=== PATIENT | female | born 1950 | race Caucasian/White ===

== ENCOUNTER 2024-03-20 11:37 | Observation (INO) ==
[2024-03-20 12:13] LABS: Basophils # (auto) 0.03 K/uL (0.00-0.20); Basophils % (auto) 0.4 %; Eosinophils # (auto) 0.17 K/uL (0.00-0.50); Eosinophils % (auto) 2.3 %; Hematocrit (blood only) 34.3 % (37.0-47.0); Hemoglobin 11.5 g/dl (12.0-16.0); Immature Granulocytes # (auto) 0.01 K/uL (0.01-0.20); Immature Granulocytes % (auto) 0.1 %; Lymphocytes # (auto) 1.42 K/uL (1.20-3.40); Mean Corpuscular Hgb Conc 33.5 g/dL (32.0-36.0); Mean Corpuscular Volume 92.5 fL (80.0-100.0); Mean Platelet Volume 10.6 fL (9.4-12.4); Monocytes # (auto) 0.51 K/uL (0.11-0.59); Monocytes % (auto) 6.8 %; Neutrophils # (auto) 5.32 K/uL (1.40-6.50); Neutrophils % (auto) 71.4 %; Platelet Count 151 K/uL (130-400); RDW Coefficient of Variation 13.5 % (11.5-14.5); RDW Standard Deviation 45.8 fL (36.4-46.3); Red Blood Count 3.71 M/uL (4.20-5.40); White Blood Count 7.46 K/ul (4.8-10.8)
--- NOTE | 2024-03-20 12:19 | Emergency Department Note ---
Impression & Plan Syncope ADMIT ED Provider Note HPI: History obtained from patient and at the bedside. The patient is a 73-year-old female with history of hyperlipidemia, presents the emergency department with a chief complaint of a syncopal event today. Patient's is at the bedside and he states that they were shopping earlier today at [facility] when the patient complained briefly of lightheadedness and then was assisted to the ground by her . He states that she did not hit her head, he states that she did complain of lightheadedness when she regained consciousness several seconds later. Patient did not have any seizure-like activity that was noted. Patient has not had similar symptoms in the past. On my initial assessment of the patient here in the ED she states she feels "fine". She denies any chest pain or shortness of breath, she does not have any focal motor deficits on arrival. Patient is mildly tachycardic on my initial assessment at 113 but she otherwise appears well. ROS: - Per HPI Differential Diagnosis: Vasovagal syncope, arrhythmia to include SVT, atrial fibrillation with RVR, ventricular tachycardia, acute coronary syndrome, pulmonary embolism, amongst other potential pathologies. *Outpatient medications and allergy history reviewed. PE: General: Alert HEENT: Normocephalic, trachea midline Eyes: Extraocular eye movement is intact, no scleral erythema Pulmonary: Clear to auscultation bilaterally, no wheezing Cardio: Regular rate and rhythm GI: Abdomen is soft to palpation : No suprapubic tenderness MSK: No evidence of trauma or malformation of the extremities, no edema Skin: No evidence of rash Neuro: Alert, no focal deficits Psychiatric: Cooperative INDEPENDENT INTERPRETATIONS: ekg monitor tech: (As interpreted by myself): - An order was placed for continuous cardiac monitoring - Patient was noted to be in Sinus rhythm with a rate of 92 EKG: (As interpreted by myself): Rate: 101 Rhythm: Sinus tachycardia Intervals: Within normal limits ST changes: No ST elevation Time: 1149 Chest x-ray: (As interpreted by myself): Nonspecific bilateral lower airspace opacities Interventions provided in ED: -IV fluid bolus Medical Decision Making: IV was established and lab work obtained, patient was placed on nuclear monitoring technician.Lab work shows no leukocytosis, hemoglobin is stable at 11.5, platelet count is normal, D-dimer was obtained that is elevated at 1180, CMP does not show any evidence of any critical findings aside from a mildly elevated troponin At 28.1. EKG per my interpretation shows sinus tachycardia without any evidence of any acute ischemic changes. Patient denies any current chest pain, low suspicion for ACS. CT angiography of the chest was obtained given the patient's elevated D-dimer, this does not show any evidence of pulmonary embolism, there is concern for calcified aortic valve and possible aortic stenosis, also mention of nonspecific patchy lower lung space opacities that could be consistent with alveolar edema versus infectious or inflammatory process. Patient denies any recent upper respiratory illness symptoms during my exam, low suspicion for acute pneumonia. Patient states that her symptoms were quite acute in onset today when she was out shopping. Repeat troponin was obtained and is uptrending to 52.6, given CT imaging findings in addition to the patient's syncopal episode today and elevated troponin, she will need to be admitted to the hospital. Patient was in agreement to this plan as well as her at the bedside. I discussed the above findings with the on-call hospitalist service for [facility] and the patient was placed to the admission of Dr. Mauricio for further care. Consultants/Discussions held with other healthcare providers: -Hospitalist, Dr. Horvath Disposition discussion held by myself with: -Patient and at bedside Diagnosis: 1. Syncope, acute 2. Elevated high-sensitivity troponin level, acute 3. Calcified aortic valve on CT imaging of the chest, acute Disposition: Admission Simon Goodman DO Emergency Medicine Past Med/Surg History Problem List (Updated 03/20/24 @ 18:02 by Simon Goodman DO) Aortic stenosis Syncope (Acute) Medical History (Updated 03/20/24 @ 18:02 by Simon Goodman DO) COVID-19 Hyperlipidemia Surgical History (Updated 03/20/24 @ 16:42 by Farnaz Delgado PA-C) History of cholecystectomy History of lumpectomy of left breast History of carpal tunnel surgery Family History (Updated 03/20/24 @ 16:42 by Farnaz Delgado PA-C) Other Diabetes Heart disease Osteoporosis Social History Smoking Status: Never smoker Feels Safe at Home: Yes Allergies Allergies Allergy/AdvReac Type Severity Reaction Status Date / Time Penicillins AdvReac Intermediate DIZZY AND Verified 02/26/21 18:56 LIGHTHEADED aspirin AdvReac Mild NAUSEA Verified 02/26/21 18:56 Home Meds Home Medications Medication Instructions Recorded Confirmed atorvastatin 20 mg tablet 20 mg PO DAILY 02/26/21 03/20/24 meloxicam 15 mg tablet 15 mg PO DAILY 02/26/21 03/20/24 Results & Data (ED) Vital Signs Vital Signs - 24 hr 03/20/24 11:45 03/20/24 11:50 03/20/24 11:59 Temperature 36.5 C Temperature Source Oral Pulse Rate 114 H Pulse Rate [Apical] Respiratory Rate 20 Respiratory Effort / Characteristics Non-Labored Spontaneous Respiratory Depth Normal Respiratory Pattern Regular Blood Pressure 110/76 Blood Pressure [Left Arm] Blood Pressure Mean 87 Blood Pressure Mean [Left Arm] Pulse Oximetry 95 Oxygen Delivery Method Room Air Room Air Room Air Sepsis Recent Fever Within 48 Hours No Sepsis New/Unexplained Change in Mental Status N/A Sepsis Action Taken by Nursing No Action Required 03/20/24 11:59 03/20/24 12:12 03/20/24 13:00 Temperature Temperature Source Pulse Rate 96 H Pulse Rate [Apical] 91 H Respiratory Rate 16 Respiratory Effort / Characteristics Respiratory Depth Respiratory Pattern Blood Pressure Blood Pressure [Left Arm] 123/78 Blood Pressure Mean Blood Pressure Mean [Left Arm] 93 Pulse Oximetry 99 Oxygen Delivery Method Room Air Room Air Sepsis Recent Fever Within 48 Hours Sepsis New/Unexplained Change in Mental Status Sepsis Action Taken by Nursing 03/20/24 15:05 03/20/24 16:37 03/20/24 17:27 Temperature Temperature Source Pulse Rate 86 Pulse Rate [Apical] 114 H 96 H Respiratory Rate 16 18 Respiratory Effort / Characteristics Non-Labored Spontaneous Non-Labored Spontaneous Respiratory Depth Normal Normal Respiratory Pattern Regular Regular Blood Pressure Blood Pressure [Left Arm] 119/78 127/71 Blood Pressure Mean Blood Pressure Mean [Left Arm] 91 89 Pulse Oximetry 99 98 Oxygen Delivery Method Room Air Room Air Sepsis Recent Fever Within 48 Hours Sepsis New/Unexplained Change in Mental Status Sepsis Action Taken by Nursing Laboratory Data 03/20/24 11:56 03/20/24 11:56 Lab Results 03/20/24 03/20/24 Range/Units 11:56 14:32 WBC 7.46 (4.8-10.8) K/ul RBC 3.71 L (4.20-5.40) M/uL Hgb 11.5 L (12.0-16.0) g/dl Hct 34.3 L (37.0-47.0) % MCV 92.5 (80.0-100.0) fL MCH 31.0 (25.0-34.0) pg MCHC 33.5 (32.0-36.0) g/dL RDW Std Deviation 45.8 (36.4-46.3) fL RDW Coeff of Oleg 13.5 (11.5-14.5) % Plt Count 151 (130-400) K/uL MPV 10.6 (9.4-12.4) fL Immature Gran % (Auto) 0.1 % Neut % (Auto) 71.4 % Lymph % (Auto) 19.0 % Stevens % (Auto) 6.8 % Eos % (Auto) 2.3 % Baso % (Auto) 0.4 % Neut # (Auto) 5.32 (1.40-6.50) K/uL Lymph # (Auto) 1.42 (1.20-3.40) K/uL Stevens # (Auto) 0.51 (0.11-0.59) K/uL Eos # (Auto) 0.17 (0.00-0.50) K/uL Baso # (Auto) 0.03 (0.00-0.20) K/uL Immature Gran # (Auto) 0.01 (0.01-0.20) K/uL PT 10.2 (9.0-12.0) Seconds INR 0.9 (0.9-1.1) APTT 24 (21-31) Seconds PTT Ratio 0.9 D-Dimer 1180 H* (0-500) ug/L FEU Sodium 142 (136-145) mmol/L Potassium 4.3 (3.5-5.1) mmol/L Chloride 108 H (98-107) mmol/L Carbon Dioxide 29 (21-32) mmol/L Anion Gap 5 (3-11) BUN 28 H (6-23) mg/dl Creatinine 0.70 (0.6-1.2) mg/dl Est Cr Clr Drug Dosing 64.1 ml/min eGFR 91.83 BUN/Creatinine Ratio 40.0 H (10-20) Glucose 98 (70-99(Fasting)) mg/dl Calcium 9.0 (8.6-10.3) mg/dl Total Bilirubin 0.6 (0.2-1.0) mg/dl AST 25 (13-39) U/L ALT 26 (7-52) U/L Alkaline Phosphatase 63 (34-104) U/L Troponin I High Sens 28.1 H 52.6 H* D (0-14) pg/ml Total Protein 6.4 (6.0-8.3) gm/dl Albumin 3.8 (3.4-5.0) gm/dl Globulin 2.6 (2.5-4.0) gm/dl Albumin/Globulin Ratio 1.5 (0.9-2) Administered Medications Discontinued Medications Sodium Chloride (Nss) 1,000 mls @ 999 mls/hr IV .Q1H1M ONE Stop: 03/20/24 13:17 Last Infusion: 03/20/24 14:07 Dose: Infused Documented By: Admin: 03/20/24 12:39 Dose: 999 mls/hr Documented By: KELLY Ioversol (Optiray 320 125ml) 120 ml IV ONCE ONE Stop: 03/20/24 13:34 Last Admin: 03/20/24 13:34 Dose: 120 ml Documented By: Imaging Data Radiologist's Impression: Chest X-Ray 03/20/24 11:59 XR chest 1V portable CLINICAL HISTORY: Chest pain, nonspecific COMPARISON STUDY: Chest CT July 23, 2010. Chest radiograph February 26, 2021. FINDINGS: No pneumothorax or pleural effusion is present. There are apparent mild bilateral lower lung airspace opacities. Cardiac size is at upper limits of normal. There is no evidence for pulmonary edema. IMPRESSION: Apparent mild bilateral lower lung airspace opacities. The findings may be related to overlying soft tissues or an infectious process. Follow-up PA and lateral chest radiographs could be obtained. ACT 112: Negative or not required by law. Electronically signed by: Sony Chang M.D. 03/20/2024 12:[address] 03/20/24 12:17 CT head/brain wo con CLINICAL HISTORY: 73 years-old Female with Syncope. Acute syncope TECHNIQUE: Multiple axial CT images of the head were obtained without contrast. A dose lowering technique was utilized adhering to the principles of ALARA. CT DOSE: 625.8 mGy.cm COMPARISON: None. FINDINGS: No acute intracranial hemorrhage, midline shift, intracranial mass, hydrocephalus, territorial ischemia or abnormal extra-axial collection. Involutional changes with probable mild chronic microvascular ischemic disease. The calvarium is intact. Chronic right maxillary sinus volume loss. The paranasal sinuses, mastoid air cells, and middle ear cavities are clear. IMPRESSION: No acute intracranial abnormality or calvarial fracture. ACT 112: Negative or not required by law. The above report was generated using voice recognition software. It may contain grammatical, syntax or spelling errors. Electronically signed by: Nathan Nunes M.D. 03/20/2024 12:50 PM Chest CTA 03/20/24 12:55 CT ANGIOGRAPHY OF THE CHEST, PULMONARY EMBOLUS PROTOCOL CLINICAL HISTORY: Syncopal episode. Evaluate for pulmonary embolus. COMPARISON STUDY: Chest CT July 23, 2010. Chest radiograph performed earlier today. TECHNIQUE: Following IV administration of Optiray, helical axial images of the chest were obtained utilizing the pulmonary embolus protocol. Maximal intensity projections and sagittal and coronal reformats were viewed on an independent 3D workstation. IV contrast was administered without complication. Automated exposure control was utilized for the study. A dose lowering technique was utilized adhering to the principles of ALARA. CT DOSE: 425.39 mGy.cm FINDINGS: No pulmonary emboli are identified although evaluation of the lower lobe pulmonary arteries is significantly compromised given suboptimal opacification. The heart is mildly enlarged. Extensive aortic valvular calcification is present. Caliber of the thoracic aorta is normal. There is no thoracic aortic dissection. There are multiple mildly enlarged mediastinal and bilateral hilar lymph nodes. Index AP window lymph node on image 153 measures 1.5 x 1.4 cm. Lungs are suboptimally assessed due to respiratory motion. Mild interlobular septal thickening is noted with groundglass opacities and mosaic attenuation. A 5 mm right middle lobe nodule on image [address] of July 23, 2010. Clustered right lower lobe nodules measure up to 5 mm. These are shown on image 87 and are new since earlier CT. Patchy alveolar opacities within the lower lungs are present. There is no confluent consolidation. A 3.9 cm right lobe thyroid nodule has mildly increased in size since CT of July 23, 2010. There is mild leftward displacement of the trachea. No acute fractures within the bony thorax are present. The gallbladder is surgically absent. IMPRESSION: 1. No pulmonary emboli identified although evaluation of the lower lobe pulmonary arteries significantly compromised given suboptimal opacification. 2. Extensive aortic valvular calcification. Aortic stenosis cannot be excluded by CT. Cardiology consultation and echocardiography might be considered. Mild cardiomegaly. 3. Findings consistent with mild interstitial pulmonary edema. Patchy lower lung opacities may reflect alveolar edema or a superimposed infectious process. 4. Mildly enlarged mediastinal and bilateral hilar lymph nodes. These may be reactive. A follow-up chest CT in 3 months to ensure resolution is recommended. 5. A few clustered right lower lobe pulmonary nodules which are new since prior CT. These are indeterminate and should be assessed on follow-up chest CT ACT 112: Positive. There are findings on this exam that require communication between the performing entity and the patient following Patient Test Result Information Act ([place] Act 112) guidelines. Electronically signed by: Sony Chang M.D. 03/20/2024 2:15 PM Discharge Plan Visit Data Chief Complaint: Syncope Stated Complaint: SYNCOPE ED Provider: Simon Goodman Discharge Problem: Syncope Forms Stand Alone Forms: [facility] Prescriptions Prescriptions: No Action atorvastatin 20 mg tablet 20 mg PO DAILY meloxicam 15 mg tablet 15 mg PO DAILY Referrals Referrals: Fawn Ruiz PA-C [Primary Care Provider] -
[2024-03-20] MEDS: SODIUM CHLORIDE 0.9% 1,000 ML IV ONE (12:39)
--- NOTE | 2024-03-20 12:40 | XRay Report ---
XR chest 1V portable CLINICAL HISTORY: Chest pain, nonspecific COMPARISON STUDY: Chest CT July 23, 2010. Chest radiograph February 26, 2021. FINDINGS: No pneumothorax or pleural effusion is present. There are apparent mild bilateral lower wayne g airspace opacities. Cardiac size is at upper limits of normal. There is no evidence for pulmonary e rody. IMPRESSION: Apparent mild bilateral lower lung airspace opacities. The findings may be related to ove rlying soft tissues or an infectious process. Follow-up PA and lateral chest radiographs could be obt ained. ACT 112: Negative or not required by law. Electronically signed by: Sony Chang M.D. 03/20/2024 12:39 PM
[2024-03-20 12:41] LABS: Albumin Globulin Ratio 1.5 (0.9-2); Albumin Level 3.8 gm/dl (3.4-5.0); Bilirubin,Total 0.6 mg/dl (0.2-1.0); Creatinine Clr Calc Pharmacy 64.1 ml/min; Globulin 2.6 gm/dl (2.5-4.0); INR 0.9 (0.9-1.1); Partial Thromboplastin Ratio 0.9; Partial Thromboplastin Time 24 Seconds (21-31); Potassium 4.3 mmol/L (3.5-5.1); Prothrombin Time 10.2 Seconds (9.0-12.0); Total Protein 6.4 gm/dl (6.0-8.3)
--- NOTE | 2024-03-20 12:51 | CT Scan Report ---
CT head/brain wo con CLINICAL HISTORY: 73 years-old Female with Syncope. Acute syncope TECHNIQUE: Multiple axial CT images of the head were obtained without contrast. A dose lowering tech nique was utilized adhering to the principles of ALARA. CT DOSE: 625.8 mGy.cm COMPARISON: None. FINDINGS: No acute intracranial hemorrhage, midline shift, intracranial mass, hydrocephalus, territorial ischem ia or abnormal extra-axial collection. Involutional changes with probable mild chronic microvascular ischemic disease. The calvarium is intact. Chronic right maxillary sinus volume loss. The paranasal sinuses, mastoid ai r cells, and middle ear cavities are clear. IMPRESSION: No acute intracranial abnormality or calvarial fracture. ACT 112: Negative or not required by law. The above report was generated using voice recognition software. It may contain grammatical, syntax o r spelling errors. Electronically signed by: Nathan Nunes M.D. 03/20/2024 12:50 PM
[2024-03-20 12:55] LABS: D Dimer 1180 ug/L FEU (0-500)
[2024-03-20 12:58] LABS: Troponin I High Sensitivity 28.1 pg/ml (0-14)
[2024-03-20] MEDS: OPTIRAY 320 125ml IV ONE (13:34)
--- NOTE | 2024-03-20 14:17 | CT Scan Report ---
CT ANGIOGRAPHY OF THE CHEST, PULMONARY EMBOLUS PROTOCOL CLINICAL HISTORY: Syncopal episode. Evaluate for pulmonary embolus. COMPARISON STUDY: Chest CT July 23, 2010. Chest radiograph performed earlier today. TECHNIQUE: Following IV administration of Optiray, helical axial images of the chest were obtained ut ilizing the pulmonary embolus protocol. Maximal intensity projections and sagittal and coronal refor mats were viewed on an independent 3D workstation. IV contrast was administered without complication . Automated exposure control was utilized for the study. A dose lowering technique was utilized adh ering to the principles of ALARA. CT DOSE: 425.39 mGy.cm FINDINGS: No pulmonary emboli are identified although evaluation of the lower lobe pulmonary arterie s is significantly compromised given suboptimal opacification. The heart is mildly enlarged. Extensiv e aortic valvular calcification is present. Caliber of the thoracic aorta is normal. There is no thor acic aortic dissection. There are multiple mildly enlarged mediastinal and bilateral hilar lymph node s. Index AP window lymph node on image 153 measures 1.5 x 1.4 cm. Lungs are suboptimally assessed due to respiratory motion. Mild interlobular septal thickening is noted with groundglass opacities and m osaic attenuation. A 5 mm right middle lobe nodule on image [address] of July 23 1. Clustered right lower lobe nodules measure up to 5 mm. These are shown on image 87 and are new sin ce earlier CT. Patchy alveolar opacities within the lower lungs are present. There is no confluent co nsolidation. A 3.9 cm right lobe thyroid nodule has mildly increased in size since CT of July 23 11. There is mild leftward displacement of the trachea. No acute fractures within the bony thorax are present. The gallbladder is surgically absent. IMPRESSION: 1. No pulmonary emboli identified although evaluation of the lower lobe pulmonary arteries significan tly compromised given suboptimal opacification. 2. Extensive aortic valvular calcification. Aortic stenosis cannot be excluded by CT. Cardiology cons ultation and echocardiography might be considered. Mild cardiomegaly. 3. Findings consistent with mild interstitial pulmonary edema. Patchy lower lung opacities may reflec t alveolar edema or a superimposed infectious process. 4. Mildly enlarged mediastinal and bilateral hilar lymph nodes. These may be reactive. A [facility] in 3 months to ensure resolution is recommended. 5. A few clustered right lower lobe pulmonary nodules which are new since prior CT. These are indeter minate and should be assessed on follow-up chest CT ACT 112: Positive. There are findings on this exam that require communication between the performing entity and the patient following Patient Test Result Information Act ([place] Act 112) guidelines. Electronically signed by: Sony Chang M.D. 03/20/2024 2:15 PM
--- NOTE | 2024-03-20 16:22 | History & Physical Report ---
Date of Service March 20, 2024 Assessment & Plan (1) Syncope: (2) Aortic stenosis: Plan This is a 73 y/o female with a history of moderate aortic stenosis and hyperlipidemia who presented to the ED today after a syncopal event. Patient has a history of moderate aortic stenosis but last ECHO was in 2014. Reports over the last few months, she has developed exertional dyspnea and fatigue. She has not followed up with cardiology for the last few years (last visit in 2020). T eleni, she had a syncopal event while shopping with her . Suspect progression of her aortic stenosis but also evaluate for ischemia, arrhythmia. Initial troponin 28.1, repeat 52.6. - Observe in PCU - Trend troponin, repeat EKG in the AM - Update ECHO - Consult cardiology - Labs in the AM including CBC, BMP, lipid panel - Continue statin Code status: full code DVT prophylaxis: lovenox Observe in PCU overnight, hopefuly for d/c in 1-2 days pending results of work- up. Anabel Delgado PA-C History of Present Illness Chief Complaint: syncope Primary Care Provider: Fawn Ruiz PA-C This is a 73 y/o female with a history of moderate aortic stenosis and hyperlipidemia who presented to the ED today after a syncopal event. Pt has limited recollection of the events so additional history was obtained from her at the bedside. Pt reports feeling fine this morning. She was shopping with her when he noticed that she wasn't standing next to him anymore and turned around to see her leaning against a shelf. He lowered her to the floor where she became unresponsive and "turned a purple color." A bystander checked her pulse and told him it was very weak, her respirations were also slower and irregular. He reports that this lasted about 5-10 minutes before she started to come around. She recalls waking up while lying on the floor. By the time EMS arrived, she was awake and responsive. She denies feeling dizzy before the event but was dizzy when she woke up. She denies chest pain, palpitations, nausea or vomiting. She is usually very active and [place] the [place] with [place] . She has noted over the last few months that she tires more easily with steep inclines or multiple flights of stairs and will have to stop to rest and catch her breath. No peripheral edema, visual changes, weakness, numbness or tingling. She does have a history of moderate aortic stenosis for which she previously followed with Dr. Alberto. However, her last ECHO was in 2014. She reports missing her more recent ECHO appointments because of other life commitments. Allergies Allergy/AdvReac Type Severity Reaction Status Date / Time Penicillins AdvReac Intermediate DIZZY AND Verified 02/26/21 18:56 LIGHTHEADED aspirin AdvReac Mild NAUSEA Verified 02/26/21 18:56 Home Medications Medication Instructions Recorded Confirmed Type atorvastatin 20 mg tablet 20 mg PO DAILY 02/26/21 03/20/24 History meloxicam 15 mg tablet 15 mg PO DAILY 02/26/21 03/20/24 History Past Med/Surg History Problem List (Updated 03/20/24 @ 16:22 by Farnaz Delgado PA-C) Aortic stenosis Syncope Medical History (Updated 03/20/24 @ 16:22 by Farnaz Delgado PA-C) COVID-19 Hyperlipidemia Surgical History (Updated 03/20/24 @ 16:42 by Farnaz Delgado PA-C) History of cholecystectomy History of lumpectomy of left breast History of carpal tunnel surgery Family History (Updated 03/20/24 @ 16:42 by Farnaz Delgado PA-C) Other Diabetes Heart disease Osteoporosis Social History Smoking Status: Never smoker Feels Safe at Home: Yes Review of Systems Review of Systems: All systems reviewed & are unremarkable except as noted in Subjective Physical Exam Physical Exam: For details of the physical exam, please see the physician note. Results & Data Results & Data Vital Signs (Past 12 Hours) Vital Signs Temp Pulse Pulse Resp BP BP Pulse Ox 03/20/24 15:05 114 H 16 119/78 99 03/20/24 13:00 91 H 16 123/78 99 03/20/24 12:12 96 H 03/20/24 11:59 03/20/24 11:59 03/20/24 11:50 03/20/24 11:45 36.5 C 114 H 20 110/76 95 O2 Del Method 03/20/24 15:05 Room Air 03/20/24 13:00 Room Air 03/20/24 12:12 03/20/24 11:59 Room Air 03/20/24 11:59 Room Air 03/20/24 11:50 Room Air 03/20/24 11:45 Room Air Laboratory Results Lab Results 03/20/24 03/20/24 Range/Units 11:56 14:32 WBC 7.46 (4.8-10.8) K/ul RBC 3.71 L (4.20-5.40) M/uL Hgb 11.5 L (12.0-16.0) g/dl Hct 34.3 L (37.0-47.0) % MCV 92.5 (80.0-100.0) fL MCH 31.0 (25.0-34.0) pg MCHC 33.5 (32.0-36.0) g/dL RDW Std Deviation 45.8 (36.4-46.3) fL RDW Coeff of Oleg 13.5 (11.5-14.5) % Plt Count 151 (130-400) K/uL MPV 10.6 (9.4-12.4) fL Immature Gran % (Auto) 0.1 % Neut % (Auto) 71.4 % Lymph % (Auto) 19.0 % Beckham % (Auto) 6.8 % Eos % (Auto) 2.3 % Baso % (Auto) 0.4 % Neut # (Auto) 5.32 (1.40-6.50) K/uL Lymph # (Auto) 1.42 (1.20-3.40) K/uL Beckham # (Auto) 0.51 (0.11-0.59) K/uL Eos # (Auto) 0.17 (0.00-0.50) K/uL Baso # (Auto) 0.03 (0.00-0.20) K/uL Immature Gran # (Auto) 0.01 (0.01-0.20) K/uL PT 10.2 (9.0-12.0) Seconds INR 0.9 (0.9-1.1) APTT 24 (21-31) Seconds PTT Ratio 0.9 D-Dimer 1180 H* (0-500) ug/L FEU Sodium 142 (136-145) mmol/L Potassium 4.3 (3.5-5.1) mmol/L Chloride 108 H (98-107) mmol/L Carbon Dioxide 29 (21-32) mmol/L Anion Gap 5 (3-11) BUN 28 H (6-23) mg/dl Creatinine 0.70 (0.6-1.2) mg/dl Est Cr Clr Drug Dosing 64.1 ml/min eGFR 91.83 BUN/Creatinine Ratio 40.0 H (10-20) Glucose 98 (70-99(Fasting)) mg/dl Calcium 9.0 (8.6-10.3) mg/dl Total Bilirubin 0.6 (0.2-1.0) mg/dl AST 25 (13-39) U/L ALT 26 (7-52) U/L Alkaline Phosphatase 63 (34-104) U/L Troponin I High Sens 28.1 H 52.6 H* D (0-14) pg/ml Total Protein 6.4 (6.0-8.3) gm/dl Albumin 3.8 (3.4-5.0) gm/dl Globulin 2.6 (2.5-4.0) gm/dl Albumin/Globulin Ratio 1.5 (0.9-2) Diagnostic Findings Chest X-Ray 03/20/24 11:59 XR chest 1V portable CLINICAL HISTORY: Chest pain, nonspecific COMPARISON STUDY: Chest CT July 23, 2010. Chest radiograph February 26, 2021. FINDINGS: No pneumothorax or pleural effusion is present. There are apparent mild bilateral lower lung airspace opacities. Cardiac size is at upper limits of normal. There is no evidence for pulmonary edema. IMPRESSION: Apparent mild bilateral lower lung airspace opacities. The findings may be related to overlying soft tissues or an infectious process. Follow-up PA and lateral chest radiographs could be obtained. ACT 112: Negative or not required by law. Electronically signed by: Sony Chang M.D. 03/20/2024 12:[address] 03/20/24 12:17 CT head/brain wo con CLINICAL HISTORY: 73 years-old Female with Syncope. Acute syncope TECHNIQUE: Multiple axial CT images of the head were obtained without contrast. A dose lowering technique was utilized adhering to the principles of ALARA. CT DOSE: 625.8 mGy.cm COMPARISON: None. FINDINGS: No acute intracranial hemorrhage, midline shift, intracranial mass, hydrocephalus, territorial ischemia or abnormal extra-axial collection. Involutional changes with probable mild chronic microvascular ischemic disease. The calvarium is intact. Chronic right maxillary sinus volume loss. The paranasal sinuses, mastoid air cells, and middle ear cavities are clear. IMPRESSION: No acute intracranial abnormality or calvarial fracture. ACT 112: Negative or not required by law. The above report was generated using voice recognition software. It may contain grammatical, syntax or spelling errors. Electronically signed by: Nathan Nunes M.D. 03/20/2024 12:50 PM Chest CTA 03/20/24 12:55 CT ANGIOGRAPHY OF THE CHEST, PULMONARY EMBOLUS PROTOCOL CLINICAL HISTORY: Syncopal episode. Evaluate for pulmonary embolus. COMPARISON STUDY: Chest CT July 23, 2010. Chest radiograph performed earlier today. TECHNIQUE: Following IV administration of Optiray, helical axial images of the chest were obtained utilizing the pulmonary embolus protocol. Maximal intensity projections and sagittal and coronal reformats were viewed on an independent 3D workstation. IV contrast was administered without complication. Automated exposure control was utilized for the study. A dose lowering technique was utilized adhering to the principles of ALARA. CT DOSE: 425.39 mGy.cm FINDINGS: No pulmonary emboli are identified although evaluation of the lower lobe pulmonary arteries is significantly compromised given suboptimal opacification. The heart is mildly enlarged. Extensive aortic valvular calcification is present. Caliber of the thoracic aorta is normal. There is no thoracic aortic dissection. There are multiple mildly enlarged mediastinal and bilateral hilar lymph nodes. Index AP window lymph node on image 153 measures 1.5 x 1.4 cm. Lungs are suboptimally assessed due to respiratory motion. Mild interlobular septal thickening is noted with groundglass opacities and mosaic attenuation. A 5 mm right middle lobe nodule on image [address] of July 23, 2010. Clustered right lower lobe nodules measure up to 5 mm. These are shown on image 87 and are new since earlier CT. Patchy alveolar opacities within the lower lungs are present. There is no confluent consolidation. A 3.9 cm right lobe thyroid nodule has mildly increased in size since CT of July 23, 2010. There is mild leftward displacement of the trachea. No acute fractures within the bony thorax are present. The gallbladder is surgically absent. IMPRESSION: 1. No pulmonary emboli identified although evaluation of the lower lobe pulmonary arteries significantly compromised given suboptimal opacification. 2. Extensive aortic valvular calcification. Aortic stenosis cannot be excluded by CT. Cardiology consultation and echocardiography might be considered. Mild cardiomegaly. 3. Findings consistent with mild interstitial pulmonary edema. Patchy lower lung opacities may reflect alveolar edema or a superimposed infectious process. 4. Mildly enlarged mediastinal and bilateral hilar lymph nodes. These may be reactive. A follow-up chest CT in 3 months to ensure resolution is recommended. 5. A few clustered right lower lobe pulmonary nodules which are new since prior CT. These are indeterminate and should be assessed on follow-up chest CT ACT 112: Positive. There are findings on this exam that require communication between the performing entity and the patient following Patient Test Result Information Act ([place] Act 112) guidelines. Electronically signed by: Sony Chang M.D. 03/20/2024 2:15 PM Medications Administered Discontinued Medications Sodium Chloride (Nss) 1,000 mls @ 999 mls/hr IV .Q1H1M ONE Stop: 03/20/24 13:17 Last Infusion: 03/20/24 14:07 Dose: Infused Documented By: Admin: 03/20/24 12:39 Dose: 999 mls/hr Documented By: KELLY Ioversol (Optiray 320 125ml) 120 ml IV ONCE ONE Stop: 03/20/24 13:34 Last Admin: 03/20/24 13:34 Dose: 120 ml Documented By: BETTYE Supervising Physician Co-Signing Physician Notes Patient seen and examined Presented after a syncopal episode witnessed by . Associated with SOB, skin color change and lasted about 5-10mins On exam, General: In no acute distress Eyes: PERRL, conjunctivae normal, not pale, anicteric sclerae, EOM intact bilaterally ENMT: External ear and nose normal, oropharynx normal Respiratory: Normal respiratory effort, no respiratory distress, lungs clear to auscultation, no crackles and no wheezes Cardiovascular: Tachycardic, regular rhythm, +systolic murmur Gastrointestinal (Abdomen): Abdomen is not distended, soft, non-tender to palpation, no guarding, no palpable hepatosplenomegaly, normal bowel sounds Musculoskeletal: No pedal edema Neurologic: Alert and oriented x 3, No focal weakness, sensation grossly intact Psychiatric: Euthymic affect Syncope May be related to progression of aortic stenosis Per TTE in 2014, patient had moderate and had not followed back up with Cards/gotten TTE since Will get TTE to reassess and get Cards input Tele monitor Trend trop I spent a total of 45 minutes coordinating, documenting and providing care for this patient excluding time spent in performance of separately billed services (1) Syncope Syncope type: unspecified Qualified Code(s): R55 - Syncope and collapse (2) Aortic stenosis Cardiac valve disease etiology: etiology unspecified Qualified Code(s): I35.0 - Nonrheumatic aortic (valve) stenosis
[2024-03-20] MEDS ORDERED: ACETAMINOPHEN 325 MG TAB PO PRN (20:11)
--- OUTSIDE RECORDS SUMMARY | 2024-03-20 23:57 | External Medical Summary | Summary of Care ---
Author Name Unknown Organization [facility] Address [address] [place] [address] Phone [phone] Care Team Providers Care Electrician Rectifier Maintenance Name Role Phone Fawn Ruiz PA-C Primary Care Provider [phone] Reason for Visit * Reason Onset Date Comments Medication Refill 10/25/2023 Encounter Details Date Type Department Care Team (Late st Contact Info) Description 10/25/2023 Refill [facility] [address] [place] [address] Fawn Ruiz PA-C [address] [place] [address] Dyslipidemia Allergies Active Allergy Reactions Criticality Noted Date Comments Penicillin V Hives High 11/05/2014 documented as of this encounter (statuses as of 10/25/2023) Medications Medication Sig Dispensed Refills Start Date End Date Status aspirin enteric coated 81 MG TBEC Take 1 Tab by mouth daily. 12/28/2014 Active Atorvastatin Calcium 20 MG Oral Tablet (Lipitor)Indicati ons:Dyslipidemia Take 1 Tablet by mouth in the morning. 90 Tablet 3 10/25/2023 Active Meloxicam 15 MG Oral Tablet (Mobic) Take 1 Tablet by mouth in the morning. For pain.. 90 Tablet 3 10/25/2023 Active Atorvastatin Calcium 20 MG Oral Tablet (Lipitor)Indicati ons:Dyslipidemia Take 1 Tablet by mouth in the morning. 90 Tablet 08/28/2023 10/25/2023 Discontinued( Refill) Meloxicam 15 MG Oral Tablet (Mobic) Take 1 Tablet by mouth in the morning. For pain.. 90 Tablet 08/28/2023 10/25/2023 Discontinued( Refill) documented as of this encounter (statuses as of 10/25/2023) Active Problems Problem Noted Date Diagnosed Date Abnormal cardiac sounds 12/28/2014 documented as of this encounter (statuses as of 10/25/2023) Social History Tobacco Use Types Packs/Day Years Used Date Smoking Tobacco: Never Smokeless Tobacco: Never Alcohol Use Standard Drinks/Week Comments No 0 (1 standard drink = 0.6 oz pur e alcohol) PHQ-2 Answer Date Recorded PHQ-2 Score 0 05/23/2018 Utilities Answer Date Recorded Do you have trouble paying y our heating, water, or electric bill? (Adult - for ages 18 years and over) Not on file 09/18/2023 Is your family able to pay t he heat, water, or electric bill? (Household - for ages 0-17 years) Not on file 09/18/2023 Does your family have access to good internet? (Household - for ages 0-17 years) Not on file 09/18/2023 Social Connections Answer Date Recorded How often do you feel lonely or isolated from those around you? (Adult - for ages 18 years and over) Not on file 09/18/2023 Sex and Gender Information Value Date Recorded Sex Assigned at Female 05/27/2019 9:50 AM EST Gender Identity Female 05/27/2019 9:50 AM EST Sexual Orientation Straight 05/27/2019 9: 50 AM EST Job Start Date Occupation Industry Not on file Not on file Not on file documented as of this encounter Miscellaneous Notes * Telephone Encounter - Cristel Matias [facility] - 10/25/2023 11:54 AM EDTSigned Prescriptions: Disp Refills Atorvastatin Calcium 20 MG Oral Tablet (Li*90 Tab*3 Sig: Take 1 Tablet by mouth in the morning. Authorizing Provider: FAWN RUIZ Ordering User: CRISTEL MATIAS Meloxicam 15 MG Oral Tablet (Mobic) 90 Tab*3 Sig: Take 1 Tablet by mouth in the morning. For pain.. Authorizing Provider: FAWN RUIZ Ordering User: RA DARYL MATIAS * Telephone Encounter - Mildred Su PHARM Tech - 10/25/2023 8:36 AM EDT Did you pend patient's preferred pharmacy and medication before forwarding?yes Pharmacy: [facility] [id number] [facility] Pending Prescriptions: Disp Refills Atorvastatin Calcium 20 MG Oral Tablet (L*90 Tab*0 Sig: Take 1 Tablet by mouth in the morning. Meloxicam 15 MG Oral Tablet (Mobic) 90 Tab*0 Sig: Take 1 Tablet by mouth in the morning. For pain.. Last Visit: 08/28/2023 (in office), 03/01/2021 (telemedicine) Next Visit: 08/28/2024 If no future appointments scheduled, and last appointment is greater than a year ago, please schedule patient for a follow-up appointment Last date the medication was ordered: 08-28-23 Is this request for a controlled substance?No Urine Drug Screen:No results found for this or any previous visit. Patient Phone Numbers Labs: Lab Results Component Value Date/Time CREAT 0.7 08/28/2023 02:06 PM POTASSIUM 4.9 08/28/2023 02:06 PM LDLCALC 57 08/28/2023 02:06 PM LDLCALC 114 11/16/2014 08:26 AM LDLDIRECT 70 08/24/2022 12:04 PM LDLDIRECT 69 05/23/2018 01:06 PM ALT 17 08/28/2023 02:06 PM ALT 33 05/23/2018 01:06 PM HGBA1C 5.4 03/09/2016 02:12 PM documented in this encounter Plan of Treatment Upcoming Encounters Date Type Department Care Team (Late st Contact Info) Description 08/28/2024 1:00 PM EDT Office Visit [facility] [address] [facility] [place] [phone] Fawn Ruiz PA-C [address] [place] [address] Health Maintenance Due Date Last Done Comments DXA Scan 1950 Hepatitis C Screening 06/02/1969 DTaP,Tdap,and Td Vaccines (1 - Tdap) 06/02/1970 Mammogram 1991 Cologuard 06/02/1996 Colonoscopy 06/02/1996 Colorectal Cancer Screening 06/02/1996 Fecal Occult Blood Test 06/02/1996 Sigmoidoscopy 06/02/1996 Zoster Vaccines (1 of 2) 06/02/2001 Pneumococcal Vaccine: 65+ Years (1 of 1 - PCV) 06/02/2016 Depression Screening 05/23/2019 05/23/2018 COVID-19 Vaccine ( - 2022- season) 2022 Influenza Vaccine (FLU shot) (#1) 2023 Lipid Panel 08/27/2028 08/28/2023, 08/01, 08/23/2021, Additional history exists HPV (Gardasil) Vaccine Aged Out No lo nger eligible based on patient's age to complete this topic Hepatitis B Vaccine Aged Out No longe r eligible based on patient's age to complete this topic MENINGOCOCCAL (MENACTRA/MENVEO) Aged Out No longer eligible based on patient's age to complete this topic documented as of this encounter Medical Devices Not on filedocumented as of this encounter Visit Diagnoses Diagnosis Dyslipidemia Other and unspecified hyperlipidemia documented in this encounter Care Teams Electrician Rectifier Maintenance Relationship Specialty Start Date End Date Fawn Ruiz PA-C [address] [facility] [id number] P[facility] - General Physician Mattress Stripper 08/28/23 documented as of this encounter
[2024-03-21 02:43] LABS: Basophils # (auto) 0.06 K/uL (0.00-0.20); Basophils % (auto) 1.1 %; Eosinophils # (auto) 0.27 K/uL (0.00-0.50); Eosinophils % (auto) 4.9 %; Hematocrit (blood only) 33.2 % (37.0-47.0); Hemoglobin 11.1 g/dl (12.0-16.0); Immature Granulocytes # (auto) 0.01 K/uL (0.01-0.20); Immature Granulocytes % (auto) 0.2 %; Lymphocytes % (auto) 30.6 %; Mean Corpuscular Hemoglobin 31.1 pg (25.0-34.0); Mean Corpuscular Hgb Conc 33.4 g/dL (32.0-36.0); Mean Platelet Volume 10.9 fL (9.4-12.4); Monocytes # (auto) 0.49 K/uL (0.11-0.59); Monocytes % (auto) 8.8 %; Neutrophils # (auto) 3.02 K/uL (1.40-6.50); Neutrophils % (auto) 54.4 %; Platelet Count 152 K/uL (130-400); RDW Coefficient of Variation 13.5 % (11.5-14.5); Red Blood Count 3.57 M/uL (4.20-5.40); White Blood Count 5.55 K/ul (4.8-10.8)
[2024-03-21 02:55] LABS: BUN Creatinine Ratio 31.3 (10-20); Calcium 8.6 mg/dl (8.6-10.3); Chol HDL Ratio 1.9 (0-5); Potassium 3.8 mmol/L (3.5-5.1)
--- NOTE | 2024-03-21 08:25 | Cardiology Consultation ---
Date of Consultation March 21, 2024 Assessment & Plan (1) Syncope: (2) Aortic stenosis: (3) Dyslipidemia, goal LDL below 100: Plan 73-year-old female who presented to the [facility] ED on 03/20/24 after a syncopal event. She was [place] shopping with her yesterday afternoon. [place] lightheaded and dizzy while standing at clothing rack. Her assisted her to the floor where she blacked out. A bystander checked her pulse which was very weak. Respirations were slower and irregular. Symptoms lasted 5-10 minutes before she regained consciousness. Awake and responsive when EMS arrived. Also notes new dyspnea on exertion with walking uphill and flight of stairs over the past couple of months. 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 Syncope Aortic stenosis -Overall feeling well this morning with no recurrent syncopal events or presyncope symptoms -Previously followed by Dr. Alberto for moderate aortic stenosis with last visit 12/2020 -Last ECHO (2014) showed LVEF 55-59%, moderate aortic stenosis and mild mitral regurgitation. -Syncopal event concerning for cardiac etiology with progression of aortic valve disease -Mildly elevated troponins (52.6-73.8-74.2) -EKG with no acute ischemic changes -Sinus rhythm with rates 70 to 90s and no significant arrhythmias upon telemetry review -Heart rate and blood pressure stable today -ECHO pending today to evaluate for progression of valvular disease -Further recommendations pending ECHO results Dyslipidemia -LDL and cholesterol within goal on AM labs -Continue [employer] OF [employer]IGION atorvastatin 20 mg daily Supervising Physician Co-Signing Physician Notes I have personally performed a history and physical examination on the patient. I have reviewed the advance practitioner's documentation, and I agree with, and take responsibility for the plan of care. 73-year-old female present to the emergency department with syncope. Shopping with her with abrupt syncope. No warning signs appreciated. states she was unconscious for 5 minutes and turned purple. Periods of apnea witnessed. Spontaneous return of circulation noted. CPR was not initiated. Patient denies any prior history of syncope, however, reports exertional dyspnea and chest tightness when climbing stairs and performing exertional activities. Unable to maintain pace with her when hiking particularly on hills. No orthopnea, PND, or lower extremity edema. No personal history of coronary diseas e, congestive heart failure, or rheumatic fever as a child. Prior echocardiogram performed in 2014 demonstrating moderate aortic valve stenosis. Repeat echocardiogram during current admission reveals severe/critical aortic valve stenosis. I had a long conversation with patient and her regarding negative prognosis associated with symptomatic severe aortic valve stenosis. Due to syncopal episode and exertional anginal symptoms, recommend transfer to tertiary care center for further evaluation and treatment of severe valvular disease. Patient agreeable. Will arrange transfer to [facility] in [place]. I spent a total of 70 minutes on the date of service in preparation, delivery, and documentation of the care provided to this patient, excluding any time spent in the performance of separately billed services. Braden Bright DO, [facility] History of Present Illness Reason for Consultation: Syncope; History of moderate aortic stenosis Requesting Physician: Farnaz Delgado PA-C Attending Physician: Ana Maria Bernabe MD History of Present Illness 73-year-old female with PMHx of moderate aortic stenosis, hyperlipidemia, and osteoarthritis who presented to the [facility] ED on 03/20/24 after a syncopal event. She was [place] shopping with her yesterday afternoon. She was standing at a clothing rack and started to feel lightheaded and dizzy. Her assisted her to the floor where she blacked out. She felt confused and dizzy when she woke up on the floor. She has a poor recollection of the events after she was lowered to the floor. not present at bedside this morning. Further information obtained from chart review as follows, she became unresponsive and "turned a purple color." A bystander checked her pulse which was very weak. Respirations were slower and irregular. Symptoms lasted 5-10 minutes before she regained consciousness. Awake and responsive when EMS arrived. Previously followed by Dr. Alberto for moderate aortic stenosis with last visit 12/2020. Last ECHO (2014) showed LVEF 55-59%, moderate aortic stenosis and mild mitral regurgitation. She has missed follow-up appointments due to other life commitments. Seen today and resting comfortably in bed. She overall is feeling well this morning. Doing well getting out of bed and ambulating to bathroom in her room. Denies chest discomfort, dyspnea on exertion, lightheadedness or dizziness with ambulation. 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 Dyspnea on exertion with walking uphill and up flight of stairs over the past couple of months. Denies shortness of breath that limits day-to-day activities on the farm. Denies chest discomfort, palpitations, shortness of breath, orthopnea, PND, worsening edema, recent weight gain, abdominal bloating, nausea, or loss of appetite. Denies recent illness or infection. Denies abnormal bleeding or bruising. Lives with her . Denies smoking, alcohol, or illicit drug use. Family History Mother - Heart disease Allergies Allergy/AdvReac Type Severity Reaction Status Date / Time Penicillins AdvReac Intermediate DIZZY AND Verified 02/26/21 18:56 LIGHTHEADED aspirin AdvReac Mild NAUSEA Verified 02/26/21 18:56 Home Medications Medication Instructions Recorded Confirmed Type atorvastatin 20 mg tablet 20 mg PO DAILY 02/26/21 03/20/24 History meloxicam 15 mg tablet 15 mg PO DAILY 02/26/21 03/20/24 History Patient History Medical History (Updated 03/21/24 @ 11:01 by CLAUDIA Thacker) COVID-19 Hyperlipidemia Surgical History (Updated 03/20/24 @ 16:42 by Farnaz Delgado PA-C) History of cholecystectomy History of lumpectomy of left breast History of carpal tunnel surgery Family History (Updated 03/20/24 @ 16:42 by Farnaz Delgado PA-C) Other Diabetes Heart disease Osteoporosis Social History Smoking Status: Never smoker Second Hand Exposure: No; Do You Dip or Chew Tobacco: No; Tobacco Cessation Education Requested by Patient: No Hx Alcohol Use: No Hx Substance Use: No Preferred Language: Wolof Communication Ability: Effective Hospital Sales Representative Required: No Beliefs That Will Affect Care: None Current Living Situation: Spouse Other Information That Helps Us Care for You: No Feels Safe at Home: Yes Safety Concerns: Feels Safe At This Time Assistive Devices: Denture - Upper, Denture - Lower and Glasses Review of Systems Review of Systems: See HPI for pertinent positives. All others negative other than those noted in the HPI. CONSTITUTIONAL: No change in weight, No weakness, No fatigue, No fevers, No sw eats or chills. HEENT: No visual changes, No epistaxis, No bleeding gums, No dysphagia, PULMONARY: +recent change in breathing. No cough, sputum, or hemoptysis, No wheezing, and No shortness of breath. CARDIOVASCULAR: +dyspnea on exertion, syncope. No chest pain, No edema, No palpitations, No claudication, No calf pain. GASTROINTESTINAL: No change in appetite, No abdominal pain, No change in bowel habits, No significant heartburn, No nausea, No vomiting, No diarrhea, No constipation, No blood in stools or black tarry stools, No dysphagia. HEMATOLOGIC: No abnormal bleeding and No bruising. NEUROLOGICAL: No falls, No dizziness, No lightheadedness, Normal balance, No headaches, and No weakness. PSYCH: No sleep disturbances, No mood changes. Physical Exam Physical Exam: Vital signs within normal limits as above. General: Well developed and nourished. No acute distress. A+Ox3. HEENT: Normocephalic. Atraumatic. EOMI. Conjunctiva and sclera clear. NECK: Trachea midline. No thyromegaly. No carotid bruits. No JVD. Carotid upstrokes are brisk. Heart: RRR. S1 and S2 noted. Grade III/ systolic murmur auscultated along left sternal border. No rubs or gallops. PMI non displaced. Lungs: No acute respiratory distress. Clear to auscultation. No wheezes. No rhonchi. No rales. Abdomen: Normal bowel sounds. Soft. Nontender. No abdominal bruits. Extremities: Normal capillary refill. No edema. No clubbing or cyanosis. Pulses: radial=2/4, dorsal pedis=2/4. Skin: Warm and dry. NEURO: No focal deficits. PSYCH: Appropriate affect and insight. Results & Data Vital Signs (Past 12 Hours) Vital Signs Temp Pulse Pulse Resp BP Pulse Ox O2 Del Method 03/21/24 08:00 36.7 C 82 18 115/67 95 Room Air 03/21/24 02:58 36.9 C 79 16 106/56 L 95 Room Air 03/20/24 23:07 36.8 C 77 16 95/56 L 95 Room Air 03/20/24 23:03 91 H 03/20/24 21:34 79 03/20/24 20:29 37.0 C 79 15 129/63 98 Room Air Laboratory Results Cardiac Enzymes 03/20/24 03/20/24 03/20/24 Range/Units 11:56 14:32 20:33 AST 25 (13-39) U/L Troponin I High Sens 28.1 H 52.6 H* D 73.8 H* D (0-14) pg/ml 03/21/24 Range/Units 02:24 AST (13-39) U/L Troponin I High Sens 74.2 H* (0-14) pg/ml Coagulation 03/20/24 Range/Units 11:56 PT 10.2 (9.0-12.0) Seconds APTT 24 (21-31) Seconds Lipids 03/21/24 Range/Units 02:24 Triglycerides 62 (0-150) mg/dl Cholesterol 131 (0-200) mg/dl HDL Cholesterol 68 mg/dl Cholesterol/HDL Ratio 1.9 (0-5) CBC 03/20/24 03/21/24 Range/Units 11:56 02:24 WBC 7.46 5.55 (4.8-10.8) K/ul RBC 3.71 L 3.57 L (4.20-5.40) M/uL Hgb 11.5 L 11.1 L (12.0-16.0) g/dl Hct 34.3 L 33.2 L (37.0-47.0) % Plt Count 151 152 (130-400) K/uL Neut # (Auto) 5.32 3.02 (1.40-6.50) K/uL Lymph # (Auto) 1.42 1.70 (1.20-3.40) K/uL Pender # (Auto) 0.51 0.49 (0.11-0.59) K/uL Eos # (Auto) 0.17 0.27 (0.00-0.50) K/uL Baso # (Auto) 0.03 0.06 (0.00-0.20) K/uL Comprehensive Metabolic Panel 03/20/24 03/21/24 Range/Units 11:56 02:24 Sodium 142 142 (136-145) mmol/L Potassium 4.3 3.8 (3.5-5.1) mmol/L Chloride 108 H 111 H (98-107) mmol/L Carbon Dioxide 29 26 (21-32) mmol/L BUN 28 H 21 (6-23) mg/dl Creatinine 0.70 0.67 (0.6-1.2) mg/dl Glucose 98 102 H (70-99(Fasting)) mg/dl Calcium 9.0 8.6 (8.6-10.3) mg/dl AST 25 (13-39) U/L ALT 26 (7-52) U/L Alkaline Phosphatase 63 (34-104) U/L Total Protein 6.4 (6.0-8.3) gm/dl Albumin 3.8 (3.4-5.0) gm/dl Intake and Output 03/20/24 03/21/24 03/21/24 22:59 06:59 14:59 Intake Total 240 / 1240 Balance 240 / 1240 Intake: Oral 240 / 240 Other: # Unmeasured Voids 2 Weight 68 kg 63.3 kg Weight Measurement Method [facility] Diagnostic Findings Reviewed EKG from 03/21/24 NSR 79 bpm QTc 449 Chest X-Ray 03/20/24 11:59 XR chest 1V portable CLINICAL HISTORY: Chest pain, nonspecific COMPARISON STUDY: Chest CT July 23, 2010. Chest radiograph February 26, 2021. FINDINGS: No pneumothorax or pleural effusion is present. There are apparent mild bilateral lower lung airspace opacities. Cardiac size is at upper limits of normal. There is no evidence for pulmonary edema. IMPRESSION: Apparent mild bilateral lower lung airspace opacities. The findings may be related to overlying soft tissues or an infectious process. Follow-up PA and lateral chest radiographs could be obtained. ACT 112: Negative or not required by law. Electronically signed by: Sony Chang M.D. 03/20/2024 12:[address] 03/20/24 12:17 CT head/brain wo con CLINICAL HISTORY: 73 years-old Female with Syncope. Acute syncope TECHNIQUE: Multiple axial CT images of the head were obtained without contrast. A dose lowering technique was utilized adhering to the principles of ALARA. CT DOSE: 625.8 mGy.cm COMPARISON: None. FINDINGS: No acute intracranial hemorrhage, midline shift, intracranial mass, hydrocephalus, territorial ischemia or abnormal extra-axial collection. Involutional changes with probable mild chronic microvascular ischemic disease. The calvarium is intact. Chronic right maxillary sinus volume loss. The paranasal sinuses, mastoid air cells, and middle ear cavities are clear. IMPRESSION: No acute intracranial abnormality or calvarial fracture. ACT 112: Negative or not required by law. The above report was generated using voice recognition software. It may contain grammatical, syntax or spelling errors. Electronically signed by: Nathan Nunes M.D. 03/20/2024 12:50 PM Chest CTA 03/20/24 12:55 CT ANGIOGRAPHY OF THE CHEST, PULMONARY EMBOLUS PROTOCOL CLINICAL HISTORY: Syncopal episode. Evaluate for pulmonary embolus. COMPARISON STUDY: Chest CT July 23, 2010. Chest radiograph performed earlier today. TECHNIQUE: Following IV administration of Optiray, helical axial images of the chest were obtained utilizing the pulmonary embolus protocol. Maximal intensity projections and sagittal and coronal reformats were viewed on an independent 3D workstation. IV contrast was administered without complication. Automated exposure control was utilized for the study. A dose lowering technique was utilized adhering to the principles of ALARA. CT DOSE: 425.39 mGy.cm FINDINGS: No pulmonary emboli are identified although evaluation of the lower lobe pulmonary arteries is significantly compromised given suboptimal opacification. The heart is mildly enlarged. Extensive aortic valvular calcification is present. Caliber of the thoracic aorta is normal. There is no thoracic aortic dissection. There are multiple mildly enlarged mediastinal and bilateral hilar lymph nodes. Index AP window lymph node on image 153 measures 1.5 x 1.4 cm. Lungs are suboptimally assessed due to respiratory motion. Mild interlobular septal thickening is noted with groundglass opacities and mosaic attenuation. A 5 mm right middle lobe nodule on image [address] of July 23, 2010. Clustered right lower lobe nodules measure up to 5 mm. These are shown on image 87 and are new since earlier CT. Patchy alveolar opacities within the lower lungs are present. There is no confluent consolidation. A 3.9 cm right lobe thyroid nodule has mildly increased in size since CT of July 23, 2010. There is mild leftward displacement of the trachea. No acute fractures within the bony thorax are present. The gallbladder is surgically absent. IMPRESSION: 1. No pulmonary emboli identified although evaluation of the lower lobe pulmonary arteries significantly compromised given suboptimal opacification. 2. Extensive aortic valvular calcification. Aortic stenosis cannot be excluded by CT. Cardiology consultation and echocardiography might be considered. Mild cardiomegaly. 3. Findings consistent with mild interstitial pulmonary edema. Patchy lower lung opacities may reflect alveolar edema or a superimposed infectious process. 4. Mildly enlarged mediastinal and bilateral hilar lymph nodes. These may be reactive. A follow-up chest CT in 3 months to ensure resolution is recommended. 5. A few clustered right lower lobe pulmonary nodules which are new since prior CT. These are indeterminate and should be assessed on follow-up chest CT ACT 112: Positive. There are findings on this exam that require communication between the performing entity and the patient following Patient Test Result Information Act ([place] Act 112) guidelines. Electronically signed by: Sony Chang M.D. 03/20/2024 2:15 PM (1) Syncope Syncope type: unspecified Qualified Code(s): R55 - Syncope and collapse (2) Aortic stenosis Cardiac valve disease etiology: etiology unspecified Qualified Code(s): I35.0 - Nonrheumatic aortic (valve) stenosis
[2024-03-21] MEDS: ATORVASTATIN 20 MG TAB PO SCH (08:30)
[2024-03-21] MEDS: MELOXICAM 7.5 MG TAB PO SCH (08:30)
--- NOTE | 2024-03-21 13:38 | Discharge Summary ---
Discharge Summary Date of Service March 21, 2024 Principal Dx & Hospital Course #1 = Principal Diagnosis (1) Syncope: (2) Aortic stenosis: Notes For Next Care Provider Medication Changes From Visit Patient will be transferred to [facility], no medication change for now Admission HPI Per Admitting Provider "This is a 73 y/o female with a history of moderate aortic stenosis and hyperlipidemia who presented to the ED today after a syncopal event. Pt has limited recollection of the events so additional history was obtained from her at the bedside. Pt reports feeling fine this morning. She was shopping with her when he noticed that she wasn't standing next to him anymore and turned around to see her leaning against a shelf. He lowered her to the floor where she became unresponsive and "turned a purple color." A bystander checked her pulse and told him it was very weak, her respirations were also slower and irregular. He reports that this lasted about 5-10 minutes before she started to come around. She recalls waking up while lying on the floor. By the time EMS arrived, she was awake and responsive. She denies feeling dizzy before the event but was dizzy when she woke up. She denies chest pain, palpitations, nausea or vomiting. She is usually very active and [place] . She has noted over the last few months that she tires more easily with steep inclines or multiple flights of stairs and will have to stop to rest and catch her breath. No peripheral edema, visual changes, weakness, numbness or tingling. She does have a history of moderate aortic stenosis for which she previously followed with Dr. Alberto. However, her last ECHO was in 2014. She reports missing her more recent ECHO appointments because of other life commitments." Patient was placing her in observation, gently diuresed, seen by cardiology, she responded to treatment and felt much better after diuresis, seen by cardiology and after reviewing the echocardiogram and in the presence of ischemic/anginal symptoms, cardiology recommended patient to be transferred to [facility] for further evaluation for her aortic stenosis. Patient has been accepted by Dr. Romain Graham. This discharge is prepared to be used when patient is assigned a bed. Discharge Exam VITALS: Reviewed. WEIGHT/BMI reviewed. GEN: Healthy appearing, well-developed, NAD. CV: Patient was grade 3 aortic ejection murmur LUNGS: CTAB, no w/r/c. ABD: Soft, NT/ND, NBS, no masses or organomegaly. SKIN: Warm, well perfused. No skin rashes or abnormal lesions. MSK: No deformities, Normal gait. EXT: No clubbing, cyanosis, or edema. NEURO: Ambulating with no limitations. Normal muscle strength and tone. No focal deficits. Updated Medication List Medication Instructions Recorded Confirmed Type atorvastatin 20 mg tablet 20 mg PO DAILY 02/26/21 03/20/24 History meloxicam 15 mg tablet 15 mg PO DAILY 02/26/21 03/20/24 History Hospital Stay Data Consultations 03/20/24 15:23 ED Decision to Admit Stat 03/20/24 20:11 Consult Cardiology Routine Diagnostic Imagining Performed 03/20/24 12:17 CT head/brain wo con Stat 03/20/24 12:55 CT angio chest PE protocol Stat Pending Results Patient Have Any Pending Studies at Discharge: No Discharge Instructions Given to Patient (Per Discharging Provider) None Total Time Total Time Spent Total Time Spent (In Minutes): more than 35 minutes
--- NOTE | 2024-03-21 22:28 | Electrocardiogram Report ---
Test Reason : Blood Pressure : */* mmHG Vent. Rate : 79 BPM Atrial Rate : 79 BPM P-R Int : 134 ms QRS Dur : 72 ms QT Int : 392 ms P-R-T Axes : 79 3 32 degrees QTcB Int : 449 ms Normal sinus rhythm Possible Left atrial enlargement Septal infarct (cited on or before 26-Feb-2021) Nonspecific T wave abnormality Abnormal ECG When compared with ECG of 20-Mar-2024 11:49, Nonspecific T wave abnormality now evident in Inferior leads Confirmed by Bernardo Cheung ([id number]) on 03/21/2024 10:28:07 PM Referred By: REFERRED SELF Confirmed By: Bernardo Cheung
--- NOTE | 2024-03-21 22:28 | Electrocardiogram Report ---
Test Reason : Blood Pressure : */* mmHG Vent. Rate : 101 BPM Atrial Rate : 101 BPM P-R Int : 130 ms QRS Dur : 72 ms QT Int : 350 ms P-R-T Axes : 73 45 51 degrees QTcB Int : 453 ms Sinus tachycardia Possible Left atrial enlargement Cannot rule out Anteroseptal infarct (cited on or before 26-Feb-2021) Abnormal ECG When compared with ECG of 26-Feb-2021 18:30, Vent. rate has increased by 35 bpm Confirmed by Bernardo Cheung ([id number]) on 03/21/2024 10:27:48 PM Referred By: REFERRED SELF Confirmed By: Bernardo Cheung
--- NOTE | 2024-03-22 08:46 | Communication Note ---
Date of Service: March 22, 2024 Patient was initially planned to be discharged to [facility] for evaluation for aortic valve replacement however the discharge was delayed because of logistical issues, patient was seen and briefly examined, clinically remained stable with no issue overnight. Awaiting bed availability at [facility].
--- NOTE | 2024-03-22 10:06 | Cardiology Progress Note ---
Date of Service March 22, 2024 Assessment & Plan (1) Severe aortic stenosis: (2) Syncope: Plan 73-year-old female with severe symptomatic aortic stenosis. Echocardiogram demonstrating functionally bicuspid aortic valve with severe stenosis. Peak velocities up to 560 cm/s. Awaiting transfer to [facility] in [place] for SAVR /TAVR evaluation. Admission and Anticipated Discharge Date Admission Date: March 20, 2024 Subjective 73-year-old female seen examined at the bedside. Feeling well today. Denies recurrent lightheadedness, dizziness, syncope, or near syncope. Telemetry reveals sinus rhythm in the 80s and 90s. No chest discomfort or shortness of breath. Awaiting transfer to [facility] in [place]. Review of Systems Review of Systems: All systems reviewed & are unremarkable except as noted in Subjective Physical Exam Constitutional: well nourished; no acute distress Respiratory: no respiratory distress, no labored breathing and no retractions Auscultation: lungs clear to auscultation bilaterally; no crackles, no rales, no rhonchi and no wheezes Cardiovascular: Rate/Rhythm: regular rate and regular rhythm Heart Sounds: + murmur (3/6 Systolic ejection murmur heard best at the base.); + abnormal S1 a nd + abnormal S2 (Diminished S2) Vessels: radial pulses present; no JVD Extremities: no edema Gastrointestinal (Abdomen): Inspection/Auscultation: abdomen normal to inspection and normal bowel sounds; abdomen not distended Percussion/Palpation: abdomen soft; abdomen nontender, no guarding and abdomen not rigid Neurologic: CN's II-XI intact bilaterally and moves all extremities; no focal motor deficits Results & Data Vital Signs (Past 12 Hours) Vital Signs Temp Pulse Pulse Resp BP Pulse Ox O2 Del Method 03/22/24 07:43 36.8 C 77 18 117/68 93 Room Air 03/22/24 04:00 36.7 C 70 16 102/66 95 Room Air 03/21/24 23:35 82 03/21/24 23:14 36.8 C 76 17 121/73 94 Room Air Laboratory Results Intake and Output 03/21/24 03/22/24 03/22/24 22:59 06:59 14:59 Intake Total 150 / 600 200 / 600 Balance 150 / 600 200 / 600 Intake: Oral 150 / 600 200 / 600 Other: # Unmeasured Voids 1 1 Weight 63.3 kg 63.9 kg Weight Measurement Method Built in [facility] (2) Syncope Syncope type: unspecified Qualified Code(s): R55 - Syncope and collapse
--- NOTE | 2024-03-23 08:16 | Communication Note ---
Date of Service: March 23, 2024 Patient was seen and briefly examined, she is overall stable, no issue overnight otherwise, as I understand there is a possibility that she may have a bed today and be actually transferred to [facility].
--- NOTE | 2024-03-23 11:48 | Cardiology Progress Note ---
Date of Service March 23, 2024 Assessment & Plan (1) Severe aortic stenosis: (2) Syncope: Plan 73-year-old female with severe symptomatic aortic stenosis. Echocardiogram demonstrating functionally bicuspid aortic valve with severe stenosis. Peak velocities up to 560 cm/s. Awaiting transfer to [facility] in [place] for SAVR /TAVR evaluation. Admission and Anticipated Discharge Date Admission Date: March 20, 2024 Subjective 73-year-old female seen examined the bedside. Feeling well today. No events on telemetry. Offers no complaints. Review of Systems Review of Systems: All systems reviewed & are unremarkable except as noted in Subjective Physical Exam Constitutional: well nourished; no acute distress Respiratory: no respiratory distress, no labored breathing and no retractions Auscultation: lungs clear to auscultation bilaterally; no crackles, no rales, no rhonchi and no wheezes Cardiovascular: Rate/Rhythm: regular rate and regular rhythm Heart Sounds: + murmur (3/6 Systolic ejection murmur heard best at the base.); + abnormal S1 and + abnormal S2 (Diminished S2) Vessels: radial pulses present; no JVD Extremities: no edema Gastrointestinal (Abdomen): Inspection/Auscultation: abdomen normal to inspection and normal bowel sounds; abdomen not distended Percussion/Palpation: abdomen soft; abdomen nontender, no guarding and abdomen not rigid Neurologic: CN's II-XI intact bilaterally and moves all extremities; no focal motor deficits Results & Data Vital Signs (Past 12 Hours) Vital Signs Temp Pulse Pulse Resp BP Pulse Ox O2 Del Method 03/23/24 07:45 36.8 C 79 18 118/75 93 Room Air 03/23/24 03:00 36.7 C 64 16 105/67 96 Room Air 03/23/24 00:00 85 Laboratory Results Intake and Output 03/22/24 03/23/24 03/23/24 22:59 06:59 14:59 Intake Total 240 / 840 120 / 840 Balance 240 / 840 120 / 840 Intake: Oral 240 / 840 120 / 840 Other: # Unmeasured Voids 2 1 Weight 63.045 kg Weight Measurement Method Built in [facility] (2) Syncope Syncope type: unspecified Qualified Code(s): R55 - Syncope and collapse
[2024-03-24 07:52] VITALS: O2SAT 94
[2024-03-24 11:33] VITALS: BP 110/69; RESP 16; TEMP 98.2
[2024-03-24 12:55] VITALS: PULSE 82
--- NOTE | 2024-03-24 12:58 | Hospitalist Progress Note ---
Date of Service March 24, 2024 Assessment & Plan (1) Severe aortic stenosis: (2) Syncope: Plan This is a 73 y/o female with a history of moderate aortic stenosis and hyperlipidemia who presented to the ED after a syncopal event. Patient has a history of moderate aortic stenosis but last ECHO was in 2014. Reports over the last few months, she has developed exertional dyspnea and fatigue. She has not followed up with cardiology for the last few years (last visit in 2020). On day of admission, she had a syncopal event while shopping with her . Initial troponin 28.1, repeat 52.6, peaked at 74. Repeat TTE on 03/21/24 noting the following: EF 60-65%, mild LVH, aortic valve severely calcified, functionally bicuspid with fusion of R and L aortic valve cusps, severe valvular aortic stenosis, mild AR, moderate to severe mitral annular calcification, mild MR, mild TR. She was evaluated by Head Of Design Dr Braden Bright who noted the following: "73-year-old female present to the emergency department with syncope. Shopping with her with abrupt syncope. No warning signs appreciated. states she was unconscious for 5 minutes and turned purple. Periods of apnea witnessed. Spontaneous return of circulation noted. CPR was not initiated. Patient denies any prior history of syncope, however, reports exertional dyspnea and chest tightness when climbing stairs and performing exertional activities. Unable to maintain pace with her when hiking particularly on hills. No orthopnea, PND, or lower extremity edema. No personal history of coronary disease, congestive heart failure, or rheumatic fever as a child. Prior echocar diogram performed in 2014 demonstrating moderate aortic valve stenosis. Repeat echocardiogram during current admission reveals severe/critical aortic valve stenosis. I had a long conversation with patient and her regarding negative prognosis associated with symptomatic severe aortic valve stenosis. Due to syncopal episode and exertional anginal symptoms, recommend transfer to tertiary care center for further evaluation and treatment of severe valvular disease. Patient agreeable. Will arrange transfer to [facility] in [place]." Due to a shortage of beds at the receiving facility, pt was not able to be transferred until 03/24/24. She remained hemodynamically stable and symptomatic while awaiting transfer. Was transferred in stable condition to [facility]. Discharge order placed on 03/21/24. Please see discharge summary dated 03/21/[address] Bernabe for discharge details. Admission and Anticipated Discharge Date Admission Date: March 20, 2024 Subjective pt was seen in the AM, sitting up in bed watching TV. No acute distress. Expressing desire to be transferred today, otherwise stating that she is going to leave and go elsewhere. She denied chest pain, SOB, palpitations, headache, N/V Later notified that transfer bed available for pt. now at bedside, pt anxious for transfer. Review of Systems Review of Systems: All systems reviewed & are unremarkable except as noted in Subjective Physical Exam Physical Exam: General: Alert, oriented. No acute distress Psych: Appropriate mood and affect Neuro: No gross deficits HEENT: NC/AT CV: RRR Resp: Breath sounds clear bilaterally, no increased effort of breathing Abdomen: Soft, nontender Extremities: No edema in lower extremities bilaterally. Results & Data Results & Data Vital Signs (Past 12 Hours) Vital Signs Temp Pulse Pulse Pulse Resp BP Pulse Ox 03/24/24 12:54 36.8 C 82 90 16 110/69 94 03/24/24 11:32 36.8 C 90 16 110/69 94 03/24/24 08:00 62 03/24/24 07:51 36.5 C 86 18 110/68 94 03/24/24 02:59 36.5 C 70 16 101/63 96 O2 Del Method 03/24/24 12:54 03/24/24 11:32 Room Air 03/24/24 08:00 03/24/24 07:51 Room Air 03/24/24 02:59 Room Air Diagnostic Findings Chest X-Ray 03/20/24 11:59 XR chest 1V portable CLINICAL HISTORY: Chest pain, nonspecific COMPARISON STUDY: Chest CT July 23, 2010. Chest radiograph February 26, 2021. FINDINGS: No pneumothorax or pleural effusion is present. There are apparent mild bilateral lower lung airspace opacities. Cardiac size is at upper limits of normal. There is no evidence for pulmonary edema. IMPRESSION: Apparent mild bilateral lower lung airspace opacities. The findings may be related to overlying soft tissues or an infectious process. Follow-up PA and lateral chest radiographs could be obtained. ACT 112: Negative or not required by law. Electronically signed by: Sony Chang M.D. 03/20/2024 12:[address] 03/20/24 12:17 CT head/brain wo con CLINICAL HISTORY: 73 years-old Female with Syncope. Acute syncope TECHNIQUE: Multiple axial CT images of the head were obtained without contrast. A dose lowering technique was utilized adhering to the principles of ALARA. CT DOSE: 625.8 mGy.cm COMPARISON: None. FINDINGS: No acute intracranial hemorrhage, midline shift, intracranial mass, hydrocephalus, territorial ischemia or abnormal extra-axial collection. Involutional changes with probable mild chronic microvascular ischemic disease. The calvarium is intact. Chronic right maxillary sinus volume loss. The paranasal sinuses, mastoid air cells, and middle ear cavities are clear. IMPRESSION: No acute intracranial abnormality or calvarial fracture. ACT 112: Negative or not required by law. The above report was generated using voice recognition software. It may contain grammatical, syntax or spelling errors. Electronically signed by: Nathan Nunes M.D. 03/20/2024 12:50 PM Chest CTA 03/20/24 12:55 CT ANGIOGRAPHY OF THE CHEST, PULMONARY EMBOLUS PROTOCOL CLINICAL HISTORY: Syncopal episode. Evaluate for pulmonary embolus. COMPARISON STUDY: Chest CT July 23, 2010. Chest radiograph performed earlier today. TECHNIQUE: Following IV administration of Optiray, helical axial images of the chest were obtained utilizing the pulmonary embolus protocol. Maximal intensity projections and sagittal and coronal reformats were viewed on an independent 3D workstation. IV contrast was administered without complication. Automated exposure control was utilized for the study. A dose lowering technique was utilized adhering to the principles of ALARA. CT DOSE: 425.39 mGy.cm FINDINGS: No pulmonary emboli are identified although evaluation of the lower lobe pulmonary arteries is significantly compromised given suboptimal opacification. The heart is mildly enlarged. Extensive aortic valvular calcification is present. Caliber of the thoracic aorta is normal. There is no t horacic aortic dissection. There are multiple mildly enlarged mediastinal and bilateral hilar lymph nodes. Index AP window lymph node on image 153 measures 1.5 x 1.4 cm. Lungs are suboptimally assessed due to respiratory motion. Mild interlobular septal thickening is noted with groundglass opacities and mosaic attenuation. A 5 mm right middle lobe nodule on image [address] of July 23, 2010. Clustered right lower lobe nodules measure up to 5 mm. These are shown on image 87 and are new since earlier CT. Patchy alveolar opacities within the lower lungs are present. There is no confluent consolidation. A 3.9 cm right lobe thyroid nodule has mildly increased in size since CT of July 23, 2010. There is mild leftward displacement of the trachea. No acute fractures within the bony thorax are present. The gallbladder is surgically absent. IMPRESSION: 1. No pulmonary emboli identified although evaluation of the lower lobe pulmonary arteries significantly compromised given suboptimal opacification. 2. Extensive aortic valvular calcification. Aortic stenosis cannot be excluded by CT. Cardiology consultation and echocardiography might be considered. Mild cardiomegaly. 3. Findings consistent with mild interstitial pulmonary edema. Patchy lower lung opacities may reflect alveolar edema or a superimposed infectious process. 4. Mildly enlarged mediastinal and bilateral hilar lymph nodes. These may be reactive. A follow-up chest CT in 3 months to ensure resolution is recommended. 5. A few clustered right lower lobe pulmonary nodules which are new since prior CT. These are indeterminate and should be assessed on follow-up chest CT ACT 112: Positive. There are findings on this exam that require communication between the performing entity and the patient following Patient Test Result Information Act ([place] Act 112) guidelines. Electronically signed by: Sony Chang M.D. 03/20/2024 2:15 PM (2) Syncope Syncope type: unspecified Qualified Code(s): R55 - Syncope and collapse
== END 2024-03-24 14:25 | disposition short-term general hospital (02) ==
LOC: ED 11:37 → 4W 11:37 → SUATTDRO 16:19 → 4W 19:42